=== PATIENT | male | born 1950 | race Caucasian/White ===

== ENCOUNTER → 2022-02-01 | Emergency (ER) | payer OTHER ==
[~2022-02-01] VITALS: Ht 165.1 cm; Wt 67.6 kg
[~2022-02-01] MED LIST: FLONAS NS; LORA1T1237 PO
--- NOTE | 2022-02-01 18:15 | NUR ---
PT CALLED IN LOBBY NO ANSWER, ERMD MADE AWARE.
--- NOTE | 2022-02-01 18:25 | NUR ---
PT CALLED IN LOBBY FOR SECOND TIME NO ANSWER, ERMD MADE AWARE.
[2022-02-01 19:33] VITALS: BP 147/106
--- NOTE | 2022-02-01 20:00 | NUR ---
Blood for labwork drawn from right arm per bracelet form coverer. Patient tolerated well.
[2022-02-01 20:15] LABS: BASOPHILS # (AUTO) 0.1 K/uL (0.00-0.22); EOSINOPHILS # (AUTO) 0.6 K/uL (0-0.4); EOSINOPHILS % (AUTO) 7.1 % (0.0-4.0); HEMATOCRIT 48.5 % (36-52); HEMOGLOBIN 16.4 g/dL (12.0-18.0); LYMPHOCYTES # (AUTO) 1.6 K/uL (2.0-11.5); LYMPHOCYTES % (AUTO) 20.2 % (20.5-51.1); MEAN CORPUSCULAR HEMOGLOBIN 31 pg (27-31); MEAN CORPUSCULAR HGB CONC 34 g/dL (33-37); MEAN CORPUSCULAR VOLUME 92.6 fL (80-94); MONOCYTES # (AUTO) 0.6 K/uL (0.8-1.0); MONOCYTES % (AUTO) 7.5 % (1.7-9.3); NEUTROPHILS # (AUTO) 5.1 K/uL (1.8-7.7); NEUTROPHILS % (AUTO) 64.2 % (42.2-75.2); PLATELET COUNT (AUTO) 255 K/uL (140-450); RED BLOOD CELL COUNT(AUTO) 5.23 MIL/uL (4.20-6.10); RED CELL DISTRIBUTION WIDTH 13.4 % (11.6-13.7); WHITE BLOOD COUNT (AUTO) 7.9 K/uL (4.8-10.8)
--- NOTE | 2022-02-01 20:20 | NUR ---
Dr. Estrada examining patient.
[2022-02-01 20:37] LABS: ALBUMIN 3.9 g/dL (3.4-5.0); ANION GAP 14.1 (8-16); ASPARTATE AMINOTRANSFERASE 18 U/L (15-37); CARBON DIOXIDE 23.1 mmol/L (21-32); CHLORIDE 108 mmol/L (98-107); CREATININE 1.3 mg/dL (0.6-1.3); GLUCOSE 147 mg/dL (74-106); POTASSIUM 4.2 mmol/L (3.5-5.1); SODIUM SERUM 141 mmol/L (136-145); TOTAL BILIRUBIN 0.4 mg/dL (0.0-1.0); UREA NITROGEN, BLOOD 23 mg/dL (7-18)
[2022-02-01 21:27] VITALS: BP 143/98
--- NOTE | 2022-02-01 21:28 | NUR ---
Patient discharged with v/s stable by ermd. Written and verbal after care instructions given and explained. Patient alert, oriented and verbalized understanding of instructions. Ambulatory with steady gait. All questions addressed prior to discharge. ID band removed. Patient advised to follow up with PMD. Rx of claritin d 12 hour tablet, flonase nasal given. Patient educated on indication of medication including possible reaction and side effects. Opportunity to ask questions provided and answered.
== END | disposition home or self-care (01) ==
LOC: MED 18:12
DX: J30.9 Allergic rhinitis, unspecified (principal); R06.02 Shortness of breath; I10 Essential (primary) hypertension; F17.200 Nicotine dependence, unspecified, uncomplicated; Z90.49 Acquired absence of other specified parts of digestive tract; Z72.89 Other problems related to lifestyle
CPT/HCPCS: 36415; 71045; 80053; 83880; 84484; 85025; 93005; 99285

== ENCOUNTER 2022-02-04 16:17 | Emergency (ER) | payer OTHER ==
[~2022-02-04] VITALS: Ht 160 cm; Wt 67.1 kg
[2022-02-04 16:28] VITALS: BP 217/96
--- NOTE | 2022-02-04 16:36 | NUR ---
71 Y/O MALE BIB SELF C/O OF SOB X1 HOUR AGO AFTER WALKING AROUND. SATTING AT 98% RA, RESPIRATIONS EVEN AND UNLABORED, BP 217/96. WAS SEEN IN THE ED FOR ALLERGIC RHINITIS A FEW DAYS AGO. LUNG SOUNDS CLEAR. NKA PMH: HTN, DEPRESSION
--- NOTE | 2022-02-04 16:45 | NUR ---
DR HERNANDES MADE AWARE OF BP 219/96
--- NOTE | 2022-02-04 16:52 | NUR ---
LAB AT BEDSIDE
--- NOTE | 2022-02-04 17:00 | NUR ---
XRAY AT BEDSIDE
[2022-02-04 17:04] LABS: BASOPHILS # (AUTO) 0.1 K/uL (0.00-0.22); EOSINOPHILS # (AUTO) 0.4 K/uL (0-0.4); EOSINOPHILS % (AUTO) 5.8 % (0.0-4.0); HEMOGLOBIN 16.7 g/dL (12.0-18.0); LYMPHOCYTES # (AUTO) 1.5 K/uL (2.0-11.5); LYMPHOCYTES % (AUTO) 21.1 % (20.5-51.1); MEAN CORPUSCULAR HEMOGLOBIN 32 pg (27-31); MEAN CORPUSCULAR HGB CONC 34 g/dL (33-37); MEAN CORPUSCULAR VOLUME 92.3 fL (80-94); MONOCYTES # (AUTO) 0.5 K/uL (0.8-1.0); MONOCYTES % (AUTO) 6.7 % (1.7-9.3); NEUTROPHILS # (AUTO) 4.8 K/uL (1.8-7.7); NEUTROPHILS % (AUTO) 65.4 % (42.2-75.2); PLATELET COUNT (AUTO) 260 K/uL (140-450); RED BLOOD CELL COUNT(AUTO) 5.31 MIL/uL (4.20-6.10); RED CELL DISTRIBUTION WIDTH 13.6 % (11.6-13.7); WHITE BLOOD COUNT (AUTO) 7.3 K/uL (4.8-10.8)
[2022-02-04 17:18] LABS: ALBUMIN 3.8 g/dL (3.4-5.0); ANION GAP 15.6 (8-16); ASPARTATE AMINOTRANSFERASE 17 U/L (15-37); CARBON DIOXIDE 22.1 mmol/L (21-32); CHLORIDE 105 mmol/L (98-107); CREATININE 1.2 mg/dL (0.6-1.3); GLUCOSE 122 mg/dL (74-106); POTASSIUM 3.7 mmol/L (3.5-5.1); SODIUM SERUM 139 mmol/L (136-145); TOTAL BILIRUBIN 0.5 mg/dL (0.0-1.0); UREA NITROGEN, BLOOD 19 mg/dL (7-18)
[2022-02-04] MEDS ORDERED: hydrALAZINE 20 MG/ML VIAL IM ONE (19:15)
--- NOTE | 2022-02-04 19:27 | NUR ---
Pt report given to JOSE Buenrostro. Transfer of care at this time.
[2022-02-04] MEDS ORDERED: cefTRIAXone 1,000 MG VIAL ONE (19:37)
[2022-02-04] MEDS ORDERED: ENALAPRILAT 2.5 MG/2 ML VIAL IVP ONE (22:25)
[2022-02-04] MEDS ORDERED: hydrALAZINE 20 MG/ML VIAL IVP ONE (22:25)
[2022-02-05] MEDS ORDERED: LABETALOL 100 MG/20 ML VIAL IVP ONE (01:30)
[2022-02-05] MEDS ORDERED: LABETALOL 20 MG/4 ML VIAL IVP ONE (01:38)
--- NOTE | 2022-02-05 02:40 | NUR ---
pt was cleared for DC by previous doctor (DR HERNANDES) once the pt's blood pressure was within normal range. pt has not been discharged due to SBP consistantly >170 SBP. pt treated accordingly by DR BETH. pt is resting comfortably in bed.
[2022-02-05 05:07] VITALS: BP 164/93
--- NOTE | 2022-02-05 05:08 | NUR ---
Patient discharged with v/s stable. Written and verbal after care instructions given and explained. Patient verbalized understanding. Ambulatory with steady gait. All questions addressed prior to discharge. Advised to follow up with PMD. VSS, A/OX4, AMBULATORY, UNLABORED BREATHING, AND CALM DEMEANOR.
== END 2022-02-05 05:08 | disposition home or self-care (01) ==
LOC: MED 16:17
DX: I10 Essential (primary) hypertension (principal)
CPT/HCPCS: 36415; 71045; 80053; 83880; 84484; 85025; 96372; 96374; 96375; 99285; J0360; J0696; J3490; Q0092